=== PATIENT | female | born 1990 | race Caucasian/White ===

== ENCOUNTER 2017-03-17 16:42 | Outpatient (CLI) | payer MEDICAID ==
[2017-03-17] MEDS ORDERED: LACTATED RINGERS 500 ML IV ONE (16:59)
[2017-03-17] MEDS ORDERED: LACTATED RINGERS 1,000 ML IV SCH (17:00)
[2017-03-17 17:21] VITALS: BP 143/81
[2017-03-17 17:23] LABS: Urine Drugs of Abuse Note Disclamer
[2017-03-17 17:31] LABS: Bacteria,Urine 1+ /HPF (Negative); Bilirubin,Urine NEG (Negative); Blood,Urine SM (Negative); Ketones,Urine 20 mg/dL (Negative); Leukocyte Esterase,Urine NEG (Negative); Mucus,Urine FEW /HPF; Nitrite,Urine NEG (Negative); Protein,Urine <15 mg/dL mg/dL (Negative)
== END 2017-03-17 17:50 | disposition home or self-care (01) ==
LOC: TRG 16:42
PROVIDERS: ATTEND Obstetrics & Gynecology
DX: Z34.93 Encounter for supervision of normal pregnancy, unspecified, third trimester (principal); Z3A.35 35 weeks gestation of pregnancy
CPT/HCPCS: 59025; 80307; 81001; 87116

== ENCOUNTER 2017-03-18 11:33 | Outpatient (CLI) | payer MEDICAID ==
[2017-03-18] MEDS ORDERED: LACTATED RINGERS 500 ML IV ONE (11:58)
[2017-03-18 12:33] LABS: Bilirubin,Urine NEG (Negative); Blood,Urine SM (Negative); Ketones,Urine NEG (Negative); Leukocyte Esterase,Urine TR (Negative); Mucus,Urine FEW /HPF; Nitrite,Urine NEG (Negative); Protein,Urine <15 mg/dL mg/dL (Negative); Urobilinogen,Urine < 2.0 mg/dL (<2.0)
[2017-03-18 12:48] VITALS: BP 117/62
== END 2017-03-18 14:05 | disposition home or self-care (01) ==
LOC: TRG 11:33
PROVIDERS: ATTEND Obstetrics & Gynecology
DX: O47.03 False labor before 37 completed weeks of gestation, third trimester (principal); Z3A.35 35 weeks gestation of pregnancy; Z79.899 Other long term (current) drug therapy
CPT/HCPCS: 81001; 82962; J7120

== ENCOUNTER 2018-11-13 21:57 | Emergency (ER) | payer MEDICAID ==
--- NOTE | 2018-11-13 22:22 | Event Note ---
ED Screening Note ED Screening Note: pt states she fell down the outdoor steps states she fell down two steps has left foot and ankle pain has not been ambulatory secondary to pain states she fx her left ankle before in 2003 pt states she has an IUD no PMhx no allergies to meds This initial assessment/diagnostic orders/clinical plan/treatment(s) is/are subject to change based on patients health status, clinical progression and re- assessment by fellow clinical providers in the ED. Further treatment and workup at subsequent clinical providers discretion. Patient/guardian urged not to elope from the ED as their condition may be serious if not clinically assessed and managed. Initial orders include: XR of the left foot and ankle
--- NOTE | 2018-11-13 23:18 | XRay Report ---
PROCEDURE: XR FOOT 3+V LT TECHNIQUE: Left foot radiographs, AP, lateral, and oblique views. HISTORY: fall, left foot pain COMPARISONS: None . FINDINGS: Fracture (s) and/or Dislocation(s): None . Alignment: Normal . Joint space(s): Normal . Soft tissues: Normal . Bone mineralization: Normal . Foreign bodies: None . Calcaneal spurring: Small inferior spur . IMPRESSION: There is no evidence of an acute fracture or dislocation. . This document is electronically signed by Cande Jiménez DO., November 13 2018 11:15:55 PM ET
--- NOTE | 2018-11-13 23:19 | XRay Report ---
PROCEDURE: XR ANKLE 3+V LT TECHNIQUE: Left ankle radiographs, AP, lateral, and oblique views. HISTORY: fall, left ankle pain COMPARISONS: None . FINDINGS: Fracture (s) and/or Dislocation(s): None . Alignment: Normal . Joint space(s): Normal . Soft tissues: Mild soft tissue swelling . Bone mineralization: Normal . Foreign bodies: None . IMPRESSION: There is mild soft tissue swelling. There is no evidence of fracture. . This document is electronically signed by Cande Jiménez DO., November 13 2018 11:17:13 PM ET
[2018-11-14] MEDS ORDERED: PERCOCET 5/325 PO STA (00:17)
--- NOTE | 2018-11-14 00:22 | Emergency Department Report ---
ED Lower Extremity HPI - General Chief Complaint: Extremity Injury, Lower Stated Complaint: FALL/LEFT LEG/ANKLE PAIN Time Seen by Provider: 11/13/18 22:20 Source: patient Mode of arrival: Wheelchair Limitations: No Limitations - History of Present Illness MD Complaint: ankle injury, foot injury -: Sudden Injury: Ankle: Right, Foot: Right Type of Injury: other (37-year-old female tripped, slipped and fell down a couple steps prior to arrival, causing pain and swelling to her right foot and ankle. Reports having a previous fracture on the same ankle in 2003 that was casted for treatment.) Severity: mild Worsens With: nothing Associated Symptoms: swelling - Related Data Home Medications Medication Instructions Recorded Confirmed Last Taken Acetaminophen [Tylenol Extra 1 tab PO PRN 04/01/17 04/01/17 Unknown Strength] Gummies 1 tab PO DAILY 04/01/17 04/01/17 Unknown Previous Rx's Medication Instructions Recorded Last Taken Type Ketorolac [Toradol] 10 mg PO Q6H PRN #20 tablet 11/14/18 Unknown Rx Allergies Allergy/AdvReac Type Severity Reaction Status Date / Time No Known Allergies Allergy Verified 03/18/17 11:57 ED Review of Systems ROS: Stated complaint: FALL/LEFT LEG/ANKLE PAIN Other details as noted in HPI Constitutional: denies: chills, fever Eyes: denies: eye pain, eye discharge, vision change ENT: denies: ear pain, throat pain Respiratory: denies: cough, shortness of breath, wheezing Cardiovascular: denies: chest pain, palpitations Endocrine: no symptoms reported Gastrointestinal: denies: abdominal pain, nausea, diarrhea Genitourinary: denies: urgency, dysuria, discharge Musculoskeletal: denies: back pain, joint swelling, arthralgia Skin: denies: rash, lesions Neurological: denies: headache, weakness, paresthesias Psychiatric: denies: anxiety, depression Hematological/Lymphatic: denies: easy bleeding, easy bruising ED Past Medical Hx - Past Medical History Previous Medical History?: Yes Hx Hypertension: No Hx Diabetes: No Hx Deep Vein Thrombosis: No Hx Renal Disease: No Hx Sickle Cell Disease: No Hx Seizures: No Hx Asthma: No Hx HIV: No Additional medical history: Left ankle Fracture - Surgical History Past Surgical History?: Yes Additional Surgical History: - Social History Smoking Status: Never Smoker Substance Use Type: None - Medications Home Medications: Home Medications Medication Instructions Recorded Confirmed Last Taken Type Acetaminophen [Tylenol Extra 1 tab PO PRN 04/01/17 04/01/17 Unknown History Strength] Gummies 1 tab PO DAILY 04/01/17 04/01/17 Unknown History Ketorolac [Toradol] 10 mg PO Q6H PRN #20 tablet 11/14/18 Unknown Rx ED Physical Exam - General Limitations: No Limitations General appearance: alert, in no apparent distress - Head Head exam: Present: atraumatic, normocephalic - Eye Eye exam: Present: normal appearance, PERRL, EOMI - ENT ENT exam: Present: mucous membranes moist - Neck Neck exam: Present: normal inspection - Respiratory Respiratory exam: Present: normal lung sounds bilaterally. Absent: respiratory distress - Cardiovascular Cardiovascular Exam: Present: regular rate, normal rhythm. Absent: systolic murmur, diastolic murmur, rubs, gallop - GI/Abdominal GI/Abdominal exam: Present: soft, normal bowel sounds - Extremities Exam Extremities exam: Present: normal inspection - Back Exam Back exam: Present: normal inspection - Neurological Exam Neurological exam: Present: alert, oriented X3 - Psychiatric Psychiatric exam: Present: normal affect, normal mood - Skin Skin exam: Present: warm, dry, intact, normal color. Absent: rash ED Course Vital Signs 11/13/18 22:02 Temperature 98.6 F Pulse Rate 92 H Respiratory 18 Rate Blood Pressure 140/98 O2 Sat by Pulse 98 Oximetry ED Lower Extremity MDM - Medical Decision Making 27-year-old female tripped and fallen on stairs. X-ray shows no fracture. Some swelling to the lateral malleolus is tender to palpation. She was placed in a sterile splint and crutches. Also significant is not ice pain control and management. Advised follow-up with primary care orthopedic in 3-5 days for reevaluation Critical care attestation.: If time is entered above; I have spent that time in minutes in the direct care of this critically ill patient, excluding procedure time. ED Disposition Clinical Impression: Ankle sprain Disposition: DC-01 TO HOME OR SELFCARE Is pt being admited?: No Does the pt Need Aspirin: No Condition: Stable Instructions: Ankle Sprain (ED), Ankle Stirrup Splint (ED), Ankle Exercises (GEN), RICE Therapy (ED), Ice Pack Application (ED) Prescriptions: Ketorolac [Toradol] 10 mg PO Q6H PRN #20 tablet PRN Reason: Pain Referrals: Sonia BLAIR [Other] - 3-5 Days
[2018-11-14 01:54] VITALS: BP 140/74
== END 2018-11-14 01:57 | disposition home or self-care (01) ==
LOC: ED 21:57
DX: S93.491A Sprain of other ligament of right ankle, initial encounter (principal); W01.0XXA Fall on same level from slipping, tripping and stumbling without subsequent striking against object, initial encounter; Z79.899 Other long term (current) drug therapy; Y93.89 Activity, other specified; Y92.89 Other specified places as the place of occurrence of the external cause; Y99.8 Other external cause status

== ENCOUNTER 2021-09-14 16:30 | Emergency (ER) | payer MEDICAID ==
[2021-09-14] MEDS ORDERED: ASPIRIN 325 MG TAB PO ONE (16:44)
--- NOTE | 2021-09-14 17:43 | XRay Report ---
CHEST 2 VIEWS INDICATION / CLINICAL INFORMATION: chest pain. COMPARISON: None available. FINDINGS: SUPPORT DEVICES: None. HEART / MEDIASTINUM: No significant abnormality. LUNGS / PLEURA: No significant pulmonary or pleural abnormality. No pneumothorax. ADDITIONAL FINDINGS: No significant additional findings. IMPRESSION: 1. No acute findings. Signer Name: Tobias Reeves MD Signed: 09/14/2021 5:39 PM Workstation Name: [id number]
[2021-09-14 17:50] VITALS: BP 124/98
[2021-09-14 17:57] LABS: Alanine Aminotransferase 68 units/L (7-56); Albumin 4.6 g/dL (3.9-5); Blood Urea Nitrogen 8 mg/dL (7-17); Calcium 9.1 mg/dL (8.4-10.2); Hemolysis Index 1
[2021-09-14 17:58] LABS: BUN/Creatinine Ratio 16
[2021-09-14 18:07] LABS: Basophils % (Auto) 0.5 % (0.0-1.8); Eosinophils # (Auto) 0.2 K/mm3 (0.0-0.4); Hemoglobin 15.3 gm/dl (10.1-14.3); Lymphocytes # (Auto) 1.9 K/mm3 (1.2-5.4); Lymphocytes % (Auto) 22.3 % (13.4-35.0); Mean Corpuscular HGB Conc 35 % (30-34); Mean Corpuscular Volume 86 fl (79-97); Monocytes # (Auto) 0.5 K/mm3 (0.0-0.8); Monocytes % (Auto) 6.3 % (0.0-7.3); Platelet Count 240 K/mm3 (140-440); Red Cell Distribution Width 13.3 % (13.2-15.2)
[2021-09-14] MEDS ORDERED: KETOROLAC 60 MG/2 ML INJ IM ONE (18:08)
[2021-09-14] MEDS ORDERED: HYDROcodone/ACETAMINOPHEN 5-325 MG TAB PO ONE (18:08)
--- NOTE | 2021-09-14 18:39 | Emergency Department Report ---
ED Chest Pain HPI - General Chief Complaint: Chest Pain Stated Complaint: CHEST TIGHTNESS/BODYACHE Time Seen by Provider: 09/14/21 17:44 Source: patient Mode of arrival: Ambulatory Limitations: No Limitations - History of Present Illness Initial Comments: 30-year-old obese female with no significant past medical history presents to the hospital complaints sudden onset of sternal chest pain radiating to the left side while driving to [place], [place] yesterday for a family reunion. Patient actually was fci there and decided to turn around due to persistent pain. Pain described as sharp, intermittent, worse with palpation, movement, and deep inspiration. She has associated shortness of breath without nausea, vomiting, or diaphoresis. Patient complains of bilateral calf muscle pain without edema, swelling, or asymmetry. No previous history of PE/DVT. Patient is a smoker. She is also on a hormonal IUD. Patient took aspirin for pain yesterday. She currently complains of 10/10 pain and has not taken any medications prior to arrival Severity scale (0 -10): 10 - Related Data Home Medications Medication Instructions Recorded Confirmed Last Taken Acetaminophen [Tylenol Extra 1 tab PO PRN 04/01/17 04/01/17 Unknown Strength] Gummies 1 tab PO DAILY 04/01/17 04/01/17 Unknown Previous Rx's Medication Instructions Recorded Last Taken Type Ketorolac [Toradol] 10 mg PO Q6H PRN #20 tablet 11/14/18 Unknown Rx HYDROcodone/APAP 5-325 [Carriere 1 each PO Q6HR PRN #15 tablet 09/14/21 Unknown Rx 5/325] Ibuprofen [Motrin] 800 mg PO Q8HR PRN #20 tablet 09/14/21 Unknown Rx Allergies Allergy/AdvReac Type Severity Reaction Status Date / Time No Known Allergies Allergy Verified 03/18/17 11:57 Heart Score - HEART Score History: Slightly suspicious EKG: Normal Age: < 45 Risk factors: 1-2 risk factors Troponin: < normal limit HEART Score: 1 - EKG Read Time Time EKG Completed: 16:41 EKG Read Time: 16:47 ED Review of Systems ROS: Stated complaint: CHEST TIGHTNESS/BODYACHE Other details as noted in HPI Comment: All other systems reviewed and negative ED Past Medical Hx - Past Medical History Previous Medical History?: Yes Hx Hypertension: No Hx Diabetes: No Hx Deep Vein Thrombosis: No Hx Renal Disease: No Hx Sickle Cell Disease: No Hx Seizures: No Hx Asthma: No Hx HIV: No Additional medical history: Left ankle Fracture - Surgical History Past Surgical History?: Yes Additional Surgical History: - Social History Smoking Status: Never Smoker Substance Use Type: None - Medications Home Medications: Home Medications Medication Instructions Recorded Confirmed Last Taken Type Acetaminophen [Tylenol Extra 1 tab PO PRN 04/01/17 04/01/17 Unknown History Strength] Gummies 1 tab PO DAILY 04/01/17 04/01/17 Unknown History Ketorolac [Toradol] 10 mg PO Q6H PRN #20 tablet 11/14/18 Unknown Rx HYDROcodone/APAP 5-325 [Carriere 1 each PO Q6HR PRN #15 tablet 09/14/21 Unknown Rx 5/325] Ibuprofen [Motrin] 800 mg PO Q8HR PRN #20 tablet 09/14/21 Unknown Rx ED Physical Exam - General Limitations: No Limitations - Other Other exam information: General: No acute distress Head: Atraumatic Eyes: normal appearance ENT: Moist mucous membranes Neck: Normal appearance, no midline tenderness Chest: Clear to auscultation bilaterally. Reproducible sternal left-sided chest wall tenderness to palpation CV: Regular rate and rhythm Abdomen: Soft, normal bowel sounds, nontender, nondistended, no rebound or guarding Back: Normal inspection Extremity: Normal inspection, full range of motion, minimal bilateral calf muscle tenderness on palpation without edema or swelling. No asymmetry Neuro: Alert O x 3, no facial asymmetry, speech clear, no gross motor sensory deficit Psych: Appropriate behavior Skin: No rash ED Course Vital Signs 09/14/21 16:35 Temperature 98.2 F Pulse Rate 89 Respiratory 22 Rate Blood Pressure 124/98 [Right] O2 Sat by Pulse 98 Oximetry ED Medical Decision Making - Lab Data Result diagrams: 09/14/21 17:26 09/14/21 17:26 Lab Results 09/14/21 09/14/21 09/14/21 Range/Units 17:26 17:26 18:13 WBC 8.6 (4.5-11.0) K/mm3 RBC 5.10 H (3.65-5.03) M/mm3 Hgb 15.3 H (10.1-14.3) gm/dl Hct 44.0 H (30.3-42.9) % MCV 86 (79-97) fl MCH 30 (28-32) pg MCHC 35 H (30-34) % RDW 13.3 (13.2-15.2) % Plt Count 240 (140-440) K/mm3 Lymph % (Auto) 22.3 (13.4-35.0) % Clay % (Auto) 6.3 (0.0-7.3) % Eos % (Auto) 2.0 (0.0-4.3) % Baso % (Auto) 0.5 (0.0-1.8) % Lymph # (Auto) 1.9 (1.2-5.4) K/mm3 Clay # (Auto) 0.5 (0.0-0.8) K/mm3 Eos # (Auto) 0.2 (0.0-0.4) K/mm3 Baso # (Auto) 0.0 (0.0-0.1) K/mm3 Seg Neutrophils % 68.9 (40.0-70.0) % Seg Neutrophils # 5.9 (1.8-7.7) K/mm3 D-Dimer 135.00 (0-234) ng/mlDDU Sodium 134 L (137-145) mmol/L Potassium 3.8 (3.6-5.0) mmol/L Chloride 97.8 L (98-107) mmol/L Carbon Dioxide 23 (22-30) mmol/L Anion Gap 17 mmol/L BUN 8 (7-17) mg/dL Creatinine 0.5 L (0.6-1.2) mg/dL Estimated GFR > 60 ml/min BUN/Creatinine Ratio 16 % Glucose 174 H (65-100) mg/dL Calcium 9.1 (8.4-10.2) mg/dL Total Bilirubin 0.50 (0.1-1.2) mg/dL AST 30 (5-40) units/L ALT 68 H (7-56) units/L Alkaline Phosphatase 78 (35-129) units/L Troponin T < 0.010 (0.00-0.029) ng/mL Total Protein 7.0 (6.3-8.2) g/dL Albumin 4.6 (3.9-5) g/dL Albumin/Globulin Ratio 1.9 % - EKG Data -: EKG Interpreted by Me EKG shows normal: sinus rhythm, ST-T waves (No STEMI) Rate: normal - EKG Data When compared to previous EKG there are: previous EKG unavailable - Radiology Data Radiology results: report reviewed CHEST 2 VIEWS INDICATION / CLINICAL INFORMATION: chest pain. COMPARISON: None available. FINDINGS: SUPPORT DEVICES: None. HEART / MEDIASTINUM: No significant abnormality. LUNGS / PLEURA: No significant pulmonary or pleural abnormality. No pneumothorax. ADDITIONAL FINDINGS: No significant additional findings. IMPRESSION: 1. No acute findings. - Medical Decision Making Patient has a low probability for pulmonary embolism based on Wells criteria and has a negative D-dimer therefore further imaging not pursued. Patient also has normal vital signs without tachycardia, hypoxia, hypotension, or hypertension. Patient has a heart score of 1 with troponin and normal EKG without ischemia. Patient's pain is very reproducible with palpation, movement, inspiration suggesting musculoskeletal in origin or costochondritis. Patient was provided Toradol and Carriere in the ED for pain with some pain relief prior to discharge - Differential Diagnosis Costochondritis, PE, atypical chest pain, GERD, MT Critical Care Time: No Critical care attestation.: If time is entered above; I have spent that time in minutes in the direct care of this critically ill patient, excluding procedure time. ED Disposition Clinical Impression: Costochondritis, acute Disposition: 01 HOME / SELF CARE / HOMELESS Is pt being admited?: No Does the pt Need Aspirin: No Condition: Stable Instructions: Costochondritis, [id number] Additional Instructions: Take the medication as prescribed. Follow-up with your doctor or doctor/clinic provided. Return if symptoms worsen as indicated by your discharge instructions. Prescriptions: Ibuprofen [Motrin] 800 mg PO Q8HR PRN #20 tablet PRN Reason: Pain , Severe (7-10) HYDROcodone/APAP 5-325 [Carriere 5/325] 1 each PO Q6HR PRN #15 tablet PRN Reason: Pain Referrals: AMOR DURAN MD [Staff Physician] - 3-5 Days [facility] [Provider Group] - 3-5 Days Time of Disposition: 19:51
--- NOTE | 2021-09-16 09:59 | Electrocardiograph Report ---
[facility] Test Date: 2021-09-14 Test Time: 16:41:18 Pat Name: MICHELLE CALDERON Department: Room: Gender: F Keno Writer: Bg BARRIENTOS RN : [id number] Requested By: NITZA MARIANO Order Number: [id number] Reading MD: Dmitry Neal Measurements Intervals [place] Rate: 94 P: 56 MT: 150 QRS: 7 QRSD: 79 T: 1 QT: 346 QTc: 433 Interpretive Statements Sinus rhythm Probable left atrial enlargement Low voltage, precordial leads No previous ECG available for comparison Electronically Signed On 09-16-2021 9:59:07 EDT by Dmitry Neal
== END 2021-09-15 02:08 | disposition home or self-care (01) ==
LOC: ED 16:30
DX: M94.0 Chondrocostal junction syndrome [Tietze] (principal); Z98.890 Other specified postprocedural states; Z79.899 Other long term (current) drug therapy
CPT/HCPCS: 36415; 71046; 80053; 84484; 85025; 85379; 93005; 96372; 99284; J1885